=== PATIENT | male | born 1975 | race African-American/Black ===

== ENCOUNTER 2017-02-27 16:11 | Inpatient (IN) | payer OTHER ==
--- NOTE | ~2017-02-27 | EKG ---
PATIENT: EVANGELINA LAKE UNIT #: [id number] Ventricular Rate: 78 BPM Atrial Rate: 78 BPM P-R Interval: 142 ms QRS Duration: 68 ms Q-T Interval: 360 ms QTC Calculation(Bezet): 410 ms P [place]: 61 degrees Calculated R [place]: 21 degrees Calculated T [place]: 54 degrees Diagnosis Line: Normal sinus rhythm with sinus arrhythmia Diagnosis Line: Normal ECG Diagnosis Line: No previous ECGs available Diagnosis Line: Confirmed by KATELYNN HERRERA MD ([id number]) on 02/28/2017 Diagnosis Line: 11:18:24 PM INTERPRETING MD: JAVIER FRIEDMAN
--- NOTE | ~2017-02-27 | HP ---
Unit #: [id number] #: [id number] Patient: RADHA LAKE [id number] [address] [address] [id number] I MR#: [id number] NAME: RADHA LAKE. ROOM: 217 Age: 41 Sex: M Admission Date: 02/27/2017 : 1975 Attending Physician: Jocelin Crowder M.D. Primary Care Physician: Sunny Abrams M.D. HISTORY AND PHYSICAL CHIEF COMPLAINT Abdominal pain. HISTORY OF PRESENTING ILLNESS Mr. Radha Lake is a 41-year-old male who has a history of alcoholic hepatitis and chronic pancreatitis who came because of abdominal pain. Patient was doing well until two days ago when he started having epigastric abdominal pain. It was constant pain. It was similar to the previous episodes of acute pancreatitis. It was sharp in nature. He was very nauseous and had some vomiting but none since admission. REVIEW OF SYSTEMS No history of fever, chills, or rigors, no history of skin rash, no history of black or bloody stools, no history of palpitations, and no history of shortness of breath. Last bowel movement was about two days ago. No history of syncopal episode. PAST MEDICAL HISTORY 1. Hypertension. 2. Chronic pancreatitis. 3. Alcoholic hepatitis. 4. History of alcohol use. According to patient, his last alcohol drink was one month ago. PAST SURGICAL HISTORY None. ALLERGIES No known drug allergies. HOME MEDICATIONS Patient is not very compliant and is not taking any medications. SOCIAL HISTORY Patient is a smoker and continues to smoke. Patient also has a history of alcohol abuse. According to him, last drink was a month ago. FAMILY HISTORY Unremarkable. PHYSICAL EXAMINATION GENERAL: Patient is lying in bed and does not seem to be in any respiratory distress. Unit #: [id number] #: [id number] Patient: RADHA LAKE VITAL SIGNS: Blood pressure is 145/98. On admission, it was 159/109. Respiratory rate 18, pulse 99, temperature 98.2, and oxygen saturation is 100%. Patient's BMI is 25. HEENT: Head is normocephalic. Eye movements are normal. NECK: Supple. CHEST: Fair air entry. No additional sounds. CARDIOVASCULAR: S1 and S2 positive. Regular rhythm. ABDOMEN: Soft. Tenderness is present in the epigastric and left upper quadrant. Bowel sounds are positive in all the quadrants. EXTREMITIES: Negative edema. CENTRAL NERVOUS SYSTEM: Patient is awake, alert, and oriented x3. No focal neurological deficit. DIAGNOSTIC STUDIES LABORATORY: WBC 8.9, hemoglobin 14.9, hematocrit 44.4, and platelet count of 216,000. Sodium 134, potassium 3.2, chloride 97, BUN less than 5, and creatinine 0.8. Liver enzymes are stable. Lipase is normal range. Troponin is less than 0.05. IMAGING: CT scan of the abdomen and pelvis was done with contrast in the hospital which shows peripancreatic edema around the pancreatic head consistent with pancreatitis. Dilatation of the pancreatic duct in the tail of the pancreas. ASSESSMENT Patient is being admitted to medical/surgical unit with: 1. Acute abdominal pain. 2. Acute on chronic pancreatitis. 3. Uncontrolled hypertension. 4. Hyponatremia. 5. Hypokalemia. PLAN Admit to med/surg. IV fluids are being started. IV pain medication is being done. Blood pressure medications are being started including Norvasc and clonidine. A full liquid diet is being started. The plan of care has been discussed with the patient. The patient has been advised to be compliant with the medications. Tobacco cessation counseling done. Please refer to progress note for further orders. Dictated by Jennifer Sanchez TD: 02/28/2017 14:21 JOB #: [id number] HISTORY AND PHYSICAL Page 1 of 1 X Jocelin Crowder MD X HISTORY AND PHYSICAL
--- NOTE | ~2017-02-27 | DS ---
Unit #: [id number] #: [id number] Patient: RADHA SHEARER [id number] [address] [address] [id number] I MR#: [id number] NAME: RADHA SHEARER. ROOM: 217 Age: 41 Sex: M Admission Date: 02/27/2017 : 1975 Discharge Date: 03/02/2017 Attending Physician: Jocelin Crowder M.D. Primary Care Physician: Sunny Abrams M.D. DISCHARGE SUMMARY FINAL DIAGNOSES 1. Abdominal pain secondary to acute on chronic pancreatitis. 2. Uncontrolled accelerated hypertension. 3. Hyponatremia. 4. Hypokalemia. 5. History of alcohol abuse. 6. Tobacco abuse. 7. Alcoholic hepatitis. DISCHARGE MEDICATIONS 1. Norvasc 10 mg p.o. daily. 2. Catapres 0.1 mg twice a day. 3. Percocet 5/325, one tablet p.o. b.i.d. p.r.n. LAB WORKUP ON DISCHARGE Sodium 136, potassium 3.6, chloride 103, BUN less than 5, creatinine 0.7, calcium 8.9, WBC 8.9, hemoglobin 14.9, hematocrit 44.4, and platelet count of 216 with MCV of 101.3. Troponin on admission was less than 0.05. Urinalysis during hospitalization was normal. HOSPITAL COURSE Mr. Radha Shearer is a 41-year-old male who was admitted with abdominal pain. CT scan of the abdomen was done which shows acute edema of the pancreas, possibly acute on chronic pancreatitis. The patient was treated with IV fluids, IV pain medications, and pain management. The patient is doing much better at this time. Patient was on liquid diet which has been advanced to normal and he is able to tolerate it. He has not had any vomiting. He would like to go home, he seems to be stable. He will follow up with Dr. Abrams in one week. During admission, the patient's blood pressure was pretty much elevated. He has not been very compliant with his medication. He is supposed to be on antihypertensive medications. On admission, patient's blood pressure was 159/109. The patient's home medications were resolved and blood pressure is much better at this time. Patient has been advised to be compliant with the medications and followup appointment. He verbalizes understanding. VITAL SIGNS on discharge - blood pressure 120/88, respiratory rate 20, pulse is 91, temperature 98.1. CHEST has fair air entry, no additional Unit #: [id number] #: [id number] Patient: RADHA SHEARER sounds. CVS - S1, S2 positive. Regular rhythm. ABDOMEN - mild epigastric and left upper quadrant tenderness is present. LOWER EXTREMITIES - negative edema. DISCHARGE INSTRUCTIONS 1. The patient is being discharged home in stable condition. 2. Medication as per Med Rec. 3. Follow up with Dr. Abrams in one week. 4. Discharge planning has been discussed with patient at length. 5. Tobacco cessation counseling has been done. 6. To be compliant with medication, counseling done. Dictated by... Jocelin Crowder M.D. KIARA/norman TD: 03/03/2017 08:10 JOB #: [id number] DISCHARGE SUMMARY Page 1 of 1 X Jocelin Crowder MD X DISCHARGE SUMMARY
--- NOTE | ~2017-02-27 | CT2 ---
[facility] A Service of [facility] RADIOLOGY TEXT RESULTS PATIENT: EVANGELINA LAKE LOCATION: [place] [address] : [birth year] UNIT #: [id number] AGE: [address]: Jocelin Crowder MD SEX: M ORDER DR: [id number] [place] [id number] [facility]. [place], [place] [address] [id number] MR#: [id number] Acc #: [id number] NAME: EVANGELINA LAKE : 1975 SEX: M STUDY DATE/TIME: 02/27/2017 16:26 UNIT: [facility] ROOM: STUDY DESCRIPTION: CT Abd and Pelv W Cont Attending Physician: Mick Duffy Aprn Ordering Physician: Ed Quinn Garduno M.D. Primary Care Physician: Sunny Abrams M.D. MEDICAL IMAGING REPORT This report is preliminary unless electronic signature is present EXAM CT of the abdomen and pelvis with IV contrast media, 02/27/2017 HISTORY SUPPLIED Abdominal pain for 1 day, history of pancreatitis. TECHNIQUE Transaxial imaging of the abdomen and pelvis was obtained with IV contrast and compared to the patient's prior study of 03/25/2016. This CT exam was performed with one or more of the following radiation dose reduction techniques: automatic exposure control, adjustment of mA and/or kV according to patient size, and iterative reconstruction. FINDINGS Lung bases are clear. Liver, gallbladder, spleen, adrenal glands, and both kidneys have a normal appearance. There is mild peripancreatic edema around the pancreatic head and uncinate process. There is dilatation of the pancreatic duct in the tail of the pancreas. No dilated or thickened loops of bowel are identified. Appendix is normal. No pelvic masses or fluid collections are identified. Bladder is unremarkable. CONCLUSION Peripancreatic edema around the pancreatic head consistent with pancreatitis. Dilatation of the pancreatic duct in the tail of pancreas as was seen on the patient's last study. This suggests either stricture or chronic changes of pancreatitis as well. Dictated by... Oh Weathers M.D. [facility] A Service of [facility] RADIOLOGY TEXT RESULTS PATIENT: EVANGELINA LAKE LOCATION: [place] [address] : [birth year] UNIT #: [id number] AGE: [address]: Jocelin Crowder MD SEX: M ORDER DR: THIS IS AN ELECTRONICALLY VERIFIED REPORT Oh Weathers M.D. at 03/02/2017 12:00 PM Alonzo TD: 02/27/2017 20:35 JOB #: [id number] MEDICAL IMAGING REPORT Page 1 of 1 COPY
[2017-02-27 12:53] LABS: BASOPHIL% 0.2 % (0-2.5); EOSINOPHIL% 0.4 % (0.0-7.0); HEMATOCRIT 44.4 % (38.0-50.0); HEMOGLOBIN 14.9 gm/dL (13.0-16.0); LYMPHOCYTE# 1.8 X10e3 (1.0-3.5); LYMPHOCYTE% 20.4 % (17.0-45.0); MEAN CELL VOLUME 101.3 FL (83-96); MEAN CORPUSCULAR HEMOGLOBIN 33.9 PG (28-34); MEAN CORPUSCULAR HGB CONC 33.5 g/dL (30-36); MEAN PLATELET VOLUME 7.9 FL (6.5-11.5); MONOCYTE# 0.9 X10e3 (0-1.0); MONOCYTE% 9.8 % (3.0-12.0); NEUTROPHIL# 6.2 X10e3 (1.5-7.1); NEUTROPHIL% 69.2 % (40-75); PLATELET COUNT 216 X10e3 (140-420); RED BLOOD COUNT 4.38 X10e (3.90-5.60); RED CELL DISTRIBUTION WIDTH 13.9 % (11.0-15.5); WHITE BLOOD COUNT 8.9 X10e3 (4.0-10.5)
[2017-02-27 12:57] LABS: DIFF IND NO
[2017-02-27 13:22] LABS: ALBUMIN SERUM 4.8 g/dL (3.5-5.0); ALKALINE PHOSPHATASE 53 U/L (32-92); ALT (SGPT) 11 U/L (10-40); AST (SGOT) 22 U/L (10-42); BILIRUBIN, DIRECT 0.2 mg/dL (0.0-0.2); BILIRUBIN,INDIRECT 0.9 mg/dL (0.0-0.9); BILIRUBIN,TOTAL 1.1 mg/dL (0.2-2.0); CALCIUM SERUM 9.6 mg/dL (8.4-10.2); CARBON DIOXIDE 22 mmol/L (22-31); CHLORIDE 97 mmol/L (100-111); CREATININE SERUM 0.8 mg/dL (0.6-1.4); GLOM FILT RATE Estimated 130.5 mL/min (>60); GLUCOSE FASTING 165 mg/dL (70-110); LIPASE 23 U/L (22-51); POTASSIUM 3.2 mmol/L (3.5-5.1); PROTEIN TOTAL SERUM 8.3 g/dL (6.0-8.3); SODIUM 134 mmol/L (135-145)
[2017-02-27 13:24] LABS: BLOOD UREA NITROGEN <5 mg/dL (9-23); BUN/CREATININE RATIO 6.25
[2017-02-27 15:52] LABS: POC - CKMB <1.0 ng/mL (0.0-7.9); POC - TROPONIN <0.05 ng/mL (<=0.05)
[~2017-02-27 16:11] MED LIST: AMLODIPINE BESYL5 MG PO; CATAPRES0.1 MG PO; CLONIDINE HCL0.1 MG PO; DILAUDID2 MG PO; FOLIC ACID PO; FOLIC ACID1 MG PO; LIBRIUM PO; LIBRIUM25 MG PO; NO MEDICATIONS; NORCO1 TAB 10/3 PO; NORVASC10 MG PO; PANTOPRAZOLE SO40 MG PO; PROTONIX PO; THIAMINE HCL100 M1 PO; THIAMINE HCL100 MG PO; VICODIN 5/500 T1 TAB PO; ZOFRAN ODT4 MG PO
[2017-02-27 17:32] LABS: URINE SOURCE CLEAN CATCH
[2017-02-27 17:40] LABS: URINE APPEARANCE CLOUDY; URINE BILIRUBIN NEG (NEG); URINE BLOOD NEG (NEG); URINE COLOR YELLOW; URINE GLUCOSE NEG (NEG); URINE KETONE 3+ (NEG); URINE LEUKOCYTE ESTERASE NEG (NEG); URINE NITRATE NEG (NEG); URINE PH 5.5 (5-8); URINE PROTEIN NEG (NEG); URINE SPECIFIC GRAVITY 1.006 (1.003-1.035); URINE UROBILINOGEN 0.2 MG/DL (NEG)
[2017-02-27 17:48] LABS: CULTURE INDICATED? NO
[2017-02-27] MEDS ORDERED: NO MEDICATIONS (20:42)
[2017-02-28] MEDS ORDERED: NORVASC10 MG PO (13:41)
[2017-02-28] MEDS ORDERED: CLONIDINE PO (13:41)
[2017-03-01 07:26] LABS: CALCIUM SERUM 8.9 mg/dL (8.4-10.2); CARBON DIOXIDE 24 mmol/L (22-31); CHLORIDE 103 mmol/L (100-111); CREATININE SERUM 0.7 mg/dL (0.6-1.4); GLOM FILT RATE Estimated 137.8 mL/min (>60); GLUCOSE FASTING 126 mg/dL (70-110); POTASSIUM 3.6 mmol/L (3.5-5.1); SODIUM 136 mmol/L (135-145)
[2017-03-01 07:27] LABS: BLOOD UREA NITROGEN <5 mg/dL (9-23); BUN/CREATININE RATIO 7.14
[2017-03-02] MEDS ORDERED: PERCOCET5/325 PO (14:35)
== END 2017-03-02 16:26 | disposition home or self-care (01) | DRG 439 ==
LOC: CED 16:11 → CEDOF 18:45 → C2A 02-28 09:47
PROVIDERS: Emergency Medicine; Nurse Practitioner Family; Physician Assistant Medical
DX: K85.90 Acute pancreatitis without necrosis or infection, unspecified (principal); E87.1 Hypo-osmolality and hyponatremia; K70.10 Alcoholic hepatitis without ascites; I10 Essential (primary) hypertension; K86.1 Other chronic pancreatitis; E87.6 Hypokalemia; F10.10 Alcohol abuse, uncomplicated; F17.210 Nicotine dependence, cigarettes, uncomplicated
CPT/HCPCS: 74177; 80048; 80076; 81003; 82553; 83690; 84484; 85025; 93005; 99284; C9113; J1170; J2405; Q9967

== ENCOUNTER 2017-06-02 02:55 | Emergency (ER) | payer OTHER ==
[~2017-06-02 02:55] MED LIST changes: +CLONIDINE PO; +PERCOCET5/325 PO
[2017-06-02 04:29] LABS: BASOPHIL% 0.2 % (0-2.5); EOSINOPHIL% 0.2 % (0.0-7.0); HEMATOCRIT 40.4 % (38.0-50.0); LYMPHOCYTE# 1.4 X10e3 (1.0-3.5); LYMPHOCYTE% 14.6 % (17.0-45.0); MEAN CELL VOLUME 100.5 FL (83-96); MEAN CORPUSCULAR HEMOGLOBIN 32.3 PG (28-34); MEAN CORPUSCULAR HGB CONC 32.1 g/dL (30-36); MEAN PLATELET VOLUME 9.1 FL (6.5-11.5); MONOCYTE# 0.8 X10e3 (0-1.0); NEUTROPHIL# 7.2 X10e3 (1.5-7.1); PLATELET COUNT 158 X10e3 (140-420); RED BLOOD COUNT 4.02 X10e (3.90-5.60); WHITE BLOOD COUNT 9.5 X10e3 (4.0-10.5)
[2017-06-02 04:32] LABS: DIFF IND NO
[2017-06-02 04:56] LABS: ALBUMIN SERUM 4.2 g/dL (3.5-5.0); ALKALINE PHOSPHATASE 51 U/L (32-92); ALT (SGPT) 16 U/L (10-40); AMYLASE 51 U/L (0-46); AST (SGOT) 27 U/L (10-42); BILIRUBIN, DIRECT 0.3 mg/dL (0.0-0.2); BILIRUBIN,INDIRECT 1.3 mg/dL (0.0-0.9); BILIRUBIN,TOTAL 1.6 mg/dL (0.2-2.0); BLOOD UREA NITROGEN <5 mg/dL (9-23); CALCIUM SERUM 8.6 mg/dL (8.4-10.2); CARBON DIOXIDE 24 mmol/L (22-31); CHLORIDE 104 mmol/L (100-111); GLOM FILT RATE Estimated 109.4 mL/min (>60); GLUCOSE FASTING 124 mg/dL (70-110); LIPASE 73 U/L (22-51); POTASSIUM 3.8 mmol/L (3.5-5.1); PROTEIN TOTAL SERUM 6.6 g/dL (6.0-8.3); SODIUM 136 mmol/L (135-145)
[2017-06-02 05:42] LABS: URINE SOURCE CLEAN CATCH
[2017-06-02 05:47] LABS: URINE APPEARANCE CLEAR; URINE BILIRUBIN NEG (NEG); URINE BLOOD NEG (NEG); URINE COLOR YELLOW; URINE GLUCOSE NEG (NEG); URINE KETONE 3+ (NEG); URINE LEUKOCYTE ESTERASE NEG (NEG); URINE NITRATE NEG (NEG); URINE PH 5.5 (5-8); URINE PROTEIN NEG (NEG); URINE SPECIFIC GRAVITY 1.014 (1.003-1.035); URINE UROBILINOGEN 0.2 MG/DL (NEG)
[2017-06-02 05:49] LABS: CULTURE INDICATED? NO
== END 2017-06-02 07:05 | disposition home or self-care (01) ==
LOC: CED 02:55
PROVIDERS: Physician Assistant
DX: K85.90 Acute pancreatitis without necrosis or infection, unspecified (principal); F17.200 Nicotine dependence, unspecified, uncomplicated
CPT/HCPCS: 36415; 80048; 80076; 81003; 82150; 83690; 85025; 96361; 96374; 96375; 96376; 99284; J1170; J2405

== ENCOUNTER 2017-06-04 01:11 | Emergency (ER) | payer OTHER ==
--- NOTE | ~2017-06-04 | CT2 ---
[facility] A Service of [facility] RADIOLOGY TEXT RESULTS PATIENT: EVANGELINA LAKE LOCATION: [facility] : [birth year] UNIT #: [id number] AGE: [address]: Abelardo Trujillo MD SEX: M ORDER DR: [id number] [facility] [address] [place], [place] [address] [id number] MR#: [id number] Acc #: [id number] NAME: EVANGELINA LAKE. : 1975 SEX: M STUDY DATE/TIME: 06/04/2017 3:28 UNIT: [facility] ROOM: STUDY DESCRIPTION: CT Abd and Pelv W Cont Attending Physician: Abelardo Trujillo M.D. Ordering Physician: Abelardo Trujillo M.D. Primary Care Physician: Abelardo Paniagua M.D. MEDICAL IMAGING REPORT This report is preliminary unless electronic signature is present EXAM CT abdomen and pelvis with contrast INDICATION Upper abdominal pain for 3 days. TECHNIQUE The patient was given 100 mL Isovue-370 and axial 5 mm images were obtained through the abdomen and pelvis. Comparison study is 02/27/2017. This CT exam was performed with one or more of the following radiation dose reduction techniques: automatic exposure control, adjustment of mA and/or kV according to patient size, and iterative reconstruction. FINDINGS The lung bases are clear. The liver, gallbladder, spleen, adrenal glands and kidneys are normal. Pancreas has a tubular water density area in the tail that either represents a dilated duct or a cyst. It is about 14 mm in length and 5 mm in thickness. It was present on the prior study and no pancreatic mass is identified. The dilated duct in the tail is unchanged from 03/25/2016 as well. There is no definite pancreatic inflammation. The aorta is normal in size. There is a small water density lesion adjacent to the aorta on the left side that is about 16 mm in diameter. 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 The gladder and prostate gland are normal. The bowel is unremarkable. The bones are unremarkable. IMPRESSION 1. There is dilation of the pancreatic duct in the tail which has been present on old studies dating back to 03/25/2016. No pancreatic mass is visible. 2. 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 [facility] A Service of [facility] RADIOLOGY TEXT RESULTS PATIENT: EVANGELINA LAKE LOCATION: [facility] : [birth year] UNIT #: [id number] AGE: [address]: Abelardo Trujillo MD SEX: M ORDER DR: 03/25/2016 and measuring about 16 mm in diameter. 3. No acute findings are identified. Dictated by... Merlin Snyder M.D. THIS IS AN ELECTRONICALLY VERIFIED REPORT Merlin Snyder M.D. at 06/05/2017 1:37 PM BOBBI/leeanne TD: 06/05/2017 04:57 JOB #: [id number] MEDICAL IMAGING REPORT Page 1 of 1 COPY
[2017-06-04 03:12] LABS: URINE SOURCE CLEAN CATCH
[2017-06-04 03:16] LABS: URINE APPEARANCE CLEAR; URINE BILIRUBIN NEG (NEG); URINE BLOOD NEG (NEG); URINE COLOR YELLOW; URINE GLUCOSE NEG (NEG); URINE KETONE 2+ (NEG); URINE LEUKOCYTE ESTERASE NEG (NEG); URINE NITRATE NEG (NEG); URINE PH 5.5 (5-8); URINE PROTEIN NEG (NEG); URINE SPECIFIC GRAVITY 1.007 (1.003-1.035); URINE UROBILINOGEN 0.2 MG/DL (NEG)
[2017-06-04 03:19] LABS: BASOPHIL% 0.2 % (0-2.5); EOSINOPHIL% 0.3 % (0.0-7.0); HEMATOCRIT 41.4 % (38.0-50.0); HEMOGLOBIN 13.7 gm/dL (13.0-16.0); LYMPHOCYTE# 2.2 X10e3 (1.0-3.5); LYMPHOCYTE% 26.4 % (17.0-45.0); MEAN CELL VOLUME 98.8 FL (83-96); MEAN CORPUSCULAR HEMOGLOBIN 32.7 PG (28-34); MEAN CORPUSCULAR HGB CONC 33.1 g/dL (30-36); MEAN PLATELET VOLUME 8.4 FL (6.5-11.5); MONOCYTE# 0.7 X10e3 (0-1.0); MONOCYTE% 8.6 % (3.0-12.0); NEUTROPHIL# 5.3 X10e3 (1.5-7.1); NEUTROPHIL% 64.5 % (40-75); PLATELET COUNT 182 X10e3 (140-420); RED BLOOD COUNT 4.19 X10e (3.90-5.60); RED CELL DISTRIBUTION WIDTH 12.9 % (11.0-15.5); WHITE BLOOD COUNT 8.2 X10e3 (4.0-10.5)
[2017-06-04 03:20] LABS: DIFF IND NO
[2017-06-04 03:21] LABS: CULTURE INDICATED? NO
[2017-06-04 03:46] LABS: ALCOHOL BLOOD <5 mg/dL ([, 0]); ALKALINE PHOSPHATASE 55 U/L (32-92); ALT (SGPT) 12 U/L (10-40); AST (SGOT) 18 U/L (10-42); BILIRUBIN, DIRECT 0.2 mg/dL (0.0-0.2); BILIRUBIN,INDIRECT 1.1 mg/dL (0.0-0.9); BILIRUBIN,TOTAL 1.3 mg/dL (0.2-2.0); BLOOD UREA NITROGEN <5 mg/dL (9-23); BUN/CREATININE RATIO 4.54; CALCIUM SERUM 9.6 mg/dL (8.4-10.2); CARBON DIOXIDE 25 mmol/L (22-31); CHLORIDE 98 mmol/L (100-111); CREATININE SERUM 1.1 mg/dL (0.6-1.4); GLOM FILT RATE Estimated 97.5 mL/min (>60); GLUCOSE FASTING 137 mg/dL (70-110); LIPASE 25 U/L (22-51); PROTEIN TOTAL SERUM 7.9 g/dL (6.0-8.3); SODIUM 134 mmol/L (135-145)
== END 2017-06-04 04:44 | disposition home or self-care (01) ==
LOC: CED 01:11
PROVIDERS: Emergency Medicine
DX: R10.13 Epigastric pain (principal); Z79.899 Other long term (current) drug therapy; F17.210 Nicotine dependence, cigarettes, uncomplicated
CPT/HCPCS: 36415; 74177; 80048; 80076; 81003; 82947; 83690; 85025; 96361; 96374; 96375; 99284; G0480; J1885; J2405; Q9967